=== PATIENT | male | born 1965 | race Two or more races ===

== ENCOUNTER 2019-01-10 06:30 | Day surgery (SDC) | payer OTHER | END 2019-01-10 09:15 | disposition home or self-care (01) | LOC: AMB-ENDOS 06:30 | DX: K57.30 Diverticulosis of large intestine without perforation or abscess without bleeding (principal); K64.8 Other hemorrhoids ==

== ENCOUNTER 2020-10-08 10:38 | Outpatient (CLI) | payer OTHER | END 2020-10-08 10:39 | disposition home or self-care (01) | LOC: LAB 10:38 | PROVIDERS: ATTEND Surgery | DX: R07.89 Other chest pain (principal); R19.5 Other fecal abnormalities; R19.4 Change in bowel habit; K64.2 Third degree hemorrhoids ==

== ENCOUNTER 2020-10-14 05:52 | Day surgery (SDC) | payer OTHER ==
[2020-10-14] MEDS ORDERED: PERCOCET 5-3251 EACH PO (14:43)
[2020-10-14] MEDS ORDERED: RECTICARE30 GM TOP (14:44)
== END 2020-10-14 19:30 | disposition home or self-care (01) ==
LOC: CIR.AMB 05:52
PROVIDERS: ATTEND Surgery
DX: K64.8 Other hemorrhoids (principal); Z20.822 Contact with and (suspected) exposure to COVID-19